=== PATIENT | male | born 1985 | race Caucasian/White ===

== ENCOUNTER 2021-03-08 12:33 | Emergency (ER) | payer OTHER ==
[~2021-03-08] VITALS: Ht 188 cm; Wt 91.0 kg
[~2021-03-08 12:33] MED LIST: NO MEDS
[2021-03-08] MEDS ORDERED: AZITHROMYCIN500 MG PO (14:21)
[2021-03-08] MEDS ORDERED: DECADRON6 MG PO (14:21)
[2021-03-08 14:35] VITALS: BP 108/72
== END 2021-03-08 14:35 | disposition home or self-care (01) | DRG 179 ==
LOC: ED 12:33
DX: U07.1 COVID-19 (principal); F17.200 Nicotine dependence, unspecified, uncomplicated

== ENCOUNTER 2022-05-06 05:08 | Emergency (ER) | payer OTHER ==
[~2022-05-06] VITALS: Ht 188 cm; Wt 95.5 kg
[2022-05-06] VITALS (7 sets, daily range): BP systolic 104–140; BP diastolic 74–83
[~2022-05-06 05:08] MED LIST changes: +AZITHROMYCIN500 MG PO; +DECADRON6 MG PO
[2022-05-06 05:56] LABS: HEMATOCRIT 47.4 % (39.0-50.0); HEMOGLOBIN 16.1 g/dl (14.0-18.0); IMMATURE GRANULOCYTES 0.2 % (0.0-5.0); MEAN CELL VOLUME 91.7 fL CALC (80.0-100.0); MEAN CORPUSCULAR HGB 31.1 pG CALC (26.0-32.0); NEUT# 7.42 thou/uL (1.82-7.42); RED BLOOD COUNT 5.17 mill/uL (4.70-6.10); RED CELL DISTRI WIDTH 13.2 % (11.5-15.5)
[2022-05-06 06:17] LABS: ALBUMIN 4.7 g/dL (3.2-5.0); ALKALINE PHOSPHATASE 98 u/l (38-126); ANION GAP 15 (6-22 (CALC)); BILIRUBIN, TOTAL 0.3 mg/dL (0.0-1.4); BUN 13 mg/dL (9-20); BUN/CREATININE RATIO 16 (12-20 (CALC)); CARBON DIOXIDE 24 mmol/l (22-30); CHLORIDE 108 mmol/l (95-108); CREATININE 0.8 mg/dL (0.7-1.3); GFR FOR AFR.AMER. > 60 ML/MIN (>=60 (CALC)); GFR OTHER RACES > 60 ML/MIN (>=60 (CALC)); SGOT/AST 33 u/l (17-59); SODIUM 143 mmol/l (137-146); TOTAL PROTEIN 7.6 g/dL (6.3-8.2)
[2022-05-06] MEDS ORDERED: FIORICET PO (06:46)
== END 2022-05-06 07:02 | disposition home or self-care (01) | DRG 103 ==
LOC: ED 05:08
PROVIDERS: Emergency Medicine
DX: G43.909 Migraine, unspecified, not intractable, without status migrainosus (principal)

== ENCOUNTER 2023-09-02 06:40 | Emergency (ER) | payer SELFPAY ==
[~2023-09-02] VITALS: Ht 188 cm; Wt 99.8 kg
[2023-09-02] VITALS (13 sets, daily range): BP systolic 92–131; BP diastolic 56–97
[~2023-09-02 06:40] MED LIST changes: +FIORICET PO
[2023-09-02 08:47] LABS: URINE BILIRUBIN - DIPSTICK Negative (NEGATIVE); URINE BLOOD DIPSTICK Negative (NEGATIVE); URINE COLOR Yellow; URINE GLUCOSE - DIPSTICK Negative (NEGATIVE); URINE KETONE Negative (NEGATIVE); URINE LEUK ESTERASE Negative (NEGATIVE); URINE NITRITE - DIPSTICK Negative (Negative); URINE PROTEIN - DIPSTICK Negative (NEG-TRACE); URINE UROBILINOGEN - DIPSTICK 0.2 E.U./dL (0.2)
[2023-09-02 08:47] LABS: BASO% 0.3 % (0-3); HEMATOCRIT 46.4 % (39.0-50.0); HEMOGLOBIN 15.5 g/dl (14.0-18.0); IMMATURE GRANULOCYTES 0.3 % (0.0-5.0); LYMPH% 26.6 % (15-41); MEAN CORPUSCULAR HGB 31.1 pG CALC (26.0-32.0); MEAN CORPUSCULAR HGB CONC 33.4 g/dL CAL (32.0-36.0); MONO% 9.9 % (2-13); NEUT# 5.93 thou/uL (1.82-7.42); NEUT% 56.9 % (42-76); RED BLOOD COUNT 4.99 mill/uL (4.70-6.10); RED CELL DISTRI WIDTH 13.4 % (11.5-15.5)
[2023-09-02] MEDS ORDERED: DEXAMETHASONE SOD. PHOSPHATE 10 MG/ML VIAL IV ONE (08:50)
[2023-09-02] MEDS ORDERED: KETOROLAC TROMETHAMINE 30 MG/ML SDV IV ONE (08:50)
[2023-09-02] MEDS ORDERED: METOCLOPRAMIDE HCL 10 MG/2 ML SDV IV ONE (08:50)
[2023-09-02] MEDS ORDERED: SODIUM CHLORIDE 0.9% 1,000 ML IV ONE (08:50)
[2023-09-02 08:56] LABS: ALBUMIN 4.1 g/dL (3.2-5.0); ALKALINE PHOSPHATASE 73 u/l (38-126); ANION GAP 9 (6-22 (CALC)); BUN 15 mg/dL (9-20); BUN/CREATININE RATIO 19 (12-20 (CALC)); CARBON DIOXIDE 27 mmol/l (22-30); CHLORIDE 110 mmol/l (95-108); CREATININE 0.8 mg/dL (0.7-1.3); GFR FOR AFR.AMER. > 60 ML/MIN (>=60 (CALC)); GFR OTHER RACES > 60 ML/MIN (>=60 (CALC)); POTASSIUM 4.1 mmol/l (3.5-5.1); SGOT/AST 41 u/l (17-59); SODIUM 141 mmol/l (137-146); TOTAL PROTEIN 6.9 g/dL (6.3-8.2)
[2023-09-02 08:57] LABS: BILIRUBIN, TOTAL 0.5 mg/dL (0.2-1.3)
[2023-09-02] MEDS ORDERED: REGLAN10 MG PO (11:22)
[2023-09-02] MEDS ORDERED: MOTRIN800 MG PO (11:22)
== END 2023-09-02 11:35 | disposition home or self-care (01) | DRG 103 ==
LOC: ED 06:40
PROVIDERS: Emergency Medicine
DX: G43.909 Migraine, unspecified, not intractable, without status migrainosus (principal)